=== PATIENT | male | born 1945 | race Caucasian/White ===

== ENCOUNTER 2024-08-18 13:14 | Observation (INO) | payer OTHER, SELFPAY ==
[2024-08-18] VITALS (77 sets, daily range): BP systolic 130–182; BP diastolic 34–72; PULSE 63–87; RESP 10–26; TEMP 36.1–37.1; O2SAT 93–100
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
[2024-08-18 14:19] LABS: Abs Immature Grans 0.06 10^3/uL (0.0-0.06); Absolute Basophil Count 0.04 10^3/uL (0.0-0.2); Absolute Lymphocyte Count 0.94 10^3/uL (1.2-3.4); Absolute Neutrophil Count 2.72 10^3/uL (1.2-6.7); Basophils % 0.9 %; Eosinophils % 2.3 %; HCT 30.6 % (40.0-50.0); HGB 9.9 g/dL (13.5-17.5); Immature Grans % 1.4 %; Lymphocytes % 22.1 %; MCH 30.7 pg (27.0-33.0); MCHC 32.4 % (32.0-36.0); MCV 95 fL (80-95); Monocytes % 9.4 %; Neutrophils % 63.9 %; Nucleated RBC 1.6 % (0.0-0.3); Platelet Count 231 10^3/uL (130-400); RBC 3.23 10^6/uL (4.36-5.78); RDW 27.9 % (11.8-14.1); RDW-SD 92.5 fL; WBC 4.26 10^3/uL (4.4-10.8)
[2024-08-18 14:36] LABS: BUN 22 mg/dL (7-18); CREATININE 1.1 mg/dL (0.70-1.30); Calcium 9.3 mg/dL (8.5-10.1); Chloride 101 mmol/L (98-107); Estimated GFR 67.44 (mL/min/1.73m2); Glucose 217 mg/dL (74-106); Potassium 3.9 mmol/L (3.5-5.1); Sodium 136 mmol/L (136-145); Troponin I 11 ng/L (<or=76)
[2024-08-18 14:58] LABS: Anisocytosis 1+; D-Dimer 688 ng/mlFEU (<500)
[2024-08-18 15:16] LABS: Troponin I 9 ng/L (<or=76)
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
[2024-08-18] MEDS: Pantoprazole 40 MG TABCR PO (19:43)
[2024-08-18] MEDS: methylPREDNISolone 4 MG TAB 8 MG PO (20:15)
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
[2024-08-19 01:17] VITALS: BP 140/71; PULSE 64; RESP 16; TEMP 36.5; O2SAT 96
[2024-08-19 01:30] VITALS: BP 140/71; PULSE 64; RESP 16; TEMP 36.5; O2SAT 96
[2024-08-19 05:30] VITALS: BP 124/93; PULSE 73; RESP 16; TEMP 36.7; O2SAT 98
[2024-08-19 05:40] LABS: Abs Immature Grans 0.05 10^3/uL (0.0-0.06); Absolute Basophil Count 0.02 10^3/uL (0.0-0.2); Absolute Lymphocyte Count 1.12 10^3/uL (1.2-3.4); Basophils % 0.5 %; HCT 30.5 % (40.0-50.0); HGB 9.9 g/dL (13.5-17.5); Immature Grans % 1.4 %; Lymphocytes % 30.4 %; MCH 30.6 pg (27.0-33.0); MCHC 32.5 % (32.0-36.0); MCV 94 fL (80-95); Monocytes % 13.6 %; Neutrophils % 54.1 %; Nucleated RBC 2.2 % (0.0-0.3); RBC 3.24 10^6/uL (4.36-5.78); RDW 27.8 % (11.8-14.1); WBC 3.69 10^3/uL (4.4-10.8)
[2024-08-19 06:10] LABS: Anisocytosis 1+; Diff Comment RBC Morph Reviewed; Hypochromasia 2+; Platelet Count 260 10^3/uL (130-400)
[2024-08-19 06:11] LABS: Poikilocytes 1+
[2024-08-19 06:19] LABS: Hemoglobin A1C 5.8 % (<5.7)
[2024-08-19 07:21] VITALS: BP 158/73; PULSE 72; RESP 18; TEMP 36.1; O2SAT 99
--- NOTE | 2024-08-19 07:30 | DI.US_ITS ---
APPROVED REPORT EXAM: Comprehensive 2D, Doppler, and color-flow Echocardiogram Patient Location: In-Patient Room/Bed: [facility] Plumber And Tinner: Giovany Rome RDCS (AE) Indications: Syncope Conclusion Normal left ventricular wall thickness and chamber size. Ejection fraction is 60%. Wall motion is n ormal Normal right ventricular size and function Both atria are normal in size There are no structural valvular abnormalities Estimated right ventricular systolic pressure is 31 mmHg Wall motion Left Ventricle The left ventricle is normal size. The left ventricular systolic function is normal. The left ventric ular ejection fraction is within the normal range. There is normal left ventricular wall thickness. T here is normal LV segmental wall motion. The left ventricular diastolic function is normal. There is no ventricular septal defect visualized. LVEF is 60%. Right Ventricle The right ventricle is normal size. The right ventricular systolic function is normal. Atria The left atrium size is normal. Right atrium is borderline dilated. The interatrial septum is intact with no evidence for an atrial septal defect. Aortic Valve The aortic valve is normal in structure. Aortic valve is trileaflet. There is no aortic valvular sten osis. Trace aortic regurgitation. Mitral Valve The mitral valve is normal in structure. No evidence of mitral valve stenosis. Mild mitral regurgitat ion. Tricuspid Valve The tricuspid valve is normal in structure. There is no tricuspid valve stenosis. Mild to moderate tr icuspid regurgitation. The RVSP is 30.75 mmHg. Pulmonic Valve The pulmonary valve is normal in structure. There is no pulmonic valvular stenosis. There is no pulmo carlos valvular regurgitation. Great Vessels The aortic root is normal in size. The ascending aorta is normal in size. Aortic arch is normal in ca liber. IVC is normal in size and collapses >50% with inspiration. Pericardium There is no pericardial effusion. 2D Dimensions IVSD d PLAX 1.13 cm M: 0.6-1.2 Ao Root d 2.91 cm M: 3.1 - 3.7 LVPW d PLAX 1.08 cm M: 0.6 - 1.2 Ao Asc Diam d 3.28 cm M: 2.6 - 3.4 LVID d PLAX 4.76 cm M: 4.2 - 5.8 LVDs 3.14 cm M: 2.5 - 4.0 LV EF Teichholz 62.8 % FS 33.98 % LV EDV (Teich) 105.5 mL LV ESV (Teich) 39.2 mL Stroke Vol Index (Teich) 34.70 M-Mode TAPSE 1.84 cm (M/F) >1.7 Auto EF LV EDV A4C 155.5 mL LV EDV A2C 112.2 mL LV EDV BP 135.9 mL LV ESV A4C 62.7 mL LV ESV A2C 45.8 mL LV ESV BP 53.5 mL LVEF(%) A4C 59.7 % LVEF(%) A2C 59.2 % LVEF(%) BP 60.6 % LV SV A4C 92.7 ml LV SV A2C 66.5 ml LV SV BP 82.4 ml LV CO A4C 6.5 L/min LV CO A2C 4.3 L/min LV CO BP 5.4 L/min HR A4C 70.59 BPM HR A2C 65.22 BPM LV EDV Index (BP) LA Volume LA Length A4C 4.6 cm LA Length A2C 5.4 cm LA Area A4C s 13.03 cm2 LA Area A2C s 24.04 cm2 LA Vol A4C A-L 31.15 mL LA Vol A2C A-L 91.46 mL LA Vol Biplane A-L 57.4 mL LA Vol/BSA A4C A-L LA Vol/BSA A2C A-L LA Vol/BSA BP A-L 30.1 mL/m2 LA Vol A4C MOD 29.3 mL LA Vol A2C MOD 85.2 mL LA Vol BP MOD 53.1 mL RA Volume RA Area A4C 14.4 cm2 RA ESV A4C (A-L) 37.9mL RA Vol/BSA A4C A-L RA Length A4C 4.7 cm RA ESV A4C (MOD) 33.6mL LV Diastology MV E' medial 0.045 (>0.07 m/s) MV E Vmax 0.54 (0.4-1.3 m/s) MV E/E' MED 12.06 (<14) MV A Vmax 0.80 (0.4-1.3 m/s) MV E' lateral 0.084 (>0.1 m/s) E/A Ratio 0.7 MV E/E' LAT 6.43 (<14) MV E' Average 0.064 m/s MV E/E'(average) 8.39 Aortic Valve AoV Vmax 1.40 m/s LVOT Vmax 1.01 m/s AoV Peak Grad 7.9 mmHg LVOT Peak Grad 4.0 mmHg AoV Area (Vmax) 2.72 cm2 LVOT VTI 0.222 m AoV VTI 0.332 m LVOT Mean Grad 1.8 mmHg AoV Mean Oskar. 0.99 m/s LVOT SV 84.39 mL AoV Mean Grad 4.4 mmHg LVOT Diam s 2.20 cm AoV Area (VTI) 2.54 cm2 AV Regurg Peak Gr. 7.89 mmHg Velocity Ratio 0.72 Mitral Valve MV DT 315 (160-240 msec) Pulmonary Valve RVOT Vmax 0.55 m/s RVOT Peak Gr. 1.2 mmHg RVOT VTI 0.112 m RVOT Mean Gr. 0.6 mmHg Tricuspid Valve RA Pressure 3.00 mmHg TR Vmax 2.63 m/s TR Peak Grad 27.7 mmHg RVSP (TR) 30.8 mmHg
[2024-08-19] MEDS: Rosuvastatin 20 MG TAB PO (08:41)
[2024-08-19] MEDS: Lisinopril 5 MG TAB PO (08:41)
[2024-08-19] MEDS: methylPREDNISolone 4 MG TAB PO (08:41)
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
== END 2024-08-19 12:46 | disposition home or self-care (01) ==
LOC: ER 16:35 → EDHOLD 17:23 → MS 08-19 01:13
PROVIDERS: Admitting Provider Family Medicine; Emergency Provider Emergency Medicine; Visit Provider Family Medicine
DX: R55 Syncope and collapse (principal); D46.9 Myelodysplastic syndrome, unspecified; I25.10 Atherosclerotic heart disease of native coronary artery without angina pectoris; M19.041 Primary osteoarthritis, right hand; I10 Essential (primary) hypertension; Z95.5 Presence of coronary angioplasty implant and graft; V89.2XXA Person injured in unspecified motor-vehicle accident, traffic, initial encounter; M48.00 Spinal stenosis, site unspecified; K27.9 Peptic ulcer, site unspecified, unspecified as acute or chronic, without hemorrhage or perforation; R94.31 Abnormal electrocardiogram [ECG] [EKG]; Z79.899 Other long term (current) drug therapy
CPT/HCPCS: 00123; 36415; 80048; 90656; 93005; 99285; 71045; 83036; 84484; 85025; 85379; 93010; 93306; 99222; 99239; G0378; J7509